=== PATIENT | female | born 1945 | race Caucasian/White ===

== ENCOUNTER 2024-08-16 15:08 | Emergency (ER) | payer MEDICARE, SELFPAY ==
[2024-08-16 15:15] VITALS: BP 166/95
[2024-08-16 15:16] VITALS: BP 166/95
[2024-08-16 15:32] LABS: % Basophils 1.1 % (0-2); % Eosinophils 0.6 % (0-6); % Immature Granulocytes 0.3 % (0-0.5); % Lymphocytes 22.6 % (20.5-51.1); % Monocytes 9.6 % (1.7-9.3); % Neutrophils 65.8 % (42.2-75.2); Absolute Basophils 0.1 10^3/uL (0-0.2); Absolute Eosinophils 0.1 10^3/uL (0-0.7); Absolute Lymphocytes 2.2 10^3/uL (1.2-3.4); Absolute Monocytes 0.9 10^3/uL (0.1-0.6); Absolute Neutrophils 6.4 10^3/uL (1.4-6.5); Hematocrit 39.6 % (37.0-47.0); Hemoglobin 14.1 g/dL (12.0-16.0); Mean Corp Hgb Conc. 35.6 g/dL (33.0-37.0); Mean Corpuscular Hgb 32.4 pg (27.0-31.0); Mean Platelet Volume 10.2 fL (7.4-10.4); Nucleated Red Blood Cells % 0 %; Platelet Count 272 10^3/uL (130-400); Red Blood Cell Count 4.35 10^6/uL (4.20-5.40); Red Cell Dist. Width 11.9 % (11.5-14.5); White Blood Cell Count 9.8 10^3/uL (4.8-10.8)
[2024-08-16 15:53] LABS: ALT (SGPT) 16 U/L (0-35); AST (SGOT) 27 U/L (14-36); Albumin 4.6 g/dl (3.5-5.0); Alkaline Phosphatase 76 U/L (38-126); Blood Urea Nitrogen 17 mg/dl (7-17); Calcium 9.4 mg/dl (8.4-10.2); Carbon Dioxide 24 mmol/L (22-30); Chloride 105 mmol/L (98-107); Estimated Creatinine Clearance 66 ml/min; Glucose 117 mg/dl (70-99); Potassium 4.7 mmol/L (3.5-5.1); Sodium 138 mmol/L (135-145); Total Bilirubin 0.9 mg/dl (0.2-1.3); Total Protein 7.6 g/dl (6.3-8.2); eGFR > 60.00
[2024-08-16] MEDS: CARDIZEM 20 MG IV (16:24)
[2024-08-16] MEDS: CARDIZEM 125 IV (16:24)
[2024-08-16 16:28] VITALS: BP 124/58
[2024-08-16 16:45] VITALS: BP 130/60
[2024-08-16 16:45] LABS: APTT 30.6 Sec (23.4-35.0)
[2024-08-16 16:47] LABS: D-Dimer 0.38 ug/mlFEU (0.00-0.50)
[2024-08-16 16:53] LABS: Troponin I < 0.012 ng/ml
[2024-08-16 17:11] LABS: NT-proBNP 668 pg/ml
[2024-08-16 17:24] LABS: Magnesium 1.9 mg/dl (1.6-2.3)
--- NOTE | 2024-08-16 17:50 | ED.GENMED ---
History of Present Illness
General
Chief Complaint: Heart Rate Problem
Source: patient
Exam Limitations: none
Time Seen by Provider: 08/16/24 15:29
Nursing documentation reviewed up to this point in time: agreed with
History of Present Illness
History of Present Illness:
Patient presents to ED secondary to intermittent episodes of chest palpitations with dizziness, which has caused her to fall on multiple occasions, including today. Patient unsure if she briefly passed during this event. Denies preceding chest
pain or shortness of breath. Denies nausea or vomiting. Denies diaphoresis. Patient has been evaluated by her primary care physician for similar complaint and has also had an outpatient evaluation with cardiology and neurologist, without
identification of etiology behind her symptoms. Denies recent illness. Denies loss of appetite. Typically, patient states that she does not sleep well at night.
Review of Systems
Review of Systems
Allergies reviewed?: Yes
All Other Systems: ROS reviewed and negative except as documented in HPI and ROS
Constitutional: Reports no symptoms
EENT: Reports no symptoms
Respiratory: Reports no symptoms; Denies trouble breathing
Cardiac: Reports palpitations and syncope; Denies chest pain
ABD/GI: Reports no symptoms; Denies nausea or vomiting
Musculoskeletal: Reports no symptoms
Skin: Reports no symptoms
Neurological: Reports dizzy; Denies headache or weakness
Phy Exam
Physical Exam
Physical Exam:
Physical Exam
General: no apparent distress, not acutely ill. afebrile
Head: nc/at. eomi
Neck: supple. normal range of motion.
Heart: irregularly irregular, tachycardic, no murmur.
Lungs: no acute respiratory distress. clear bilaterally
Abdomen: normal bowel sounds. not tender.
Neuro: alert and oriented x 3. no focal neurological deficits
Skin: no rash
Psychiatric: well kept. interactive and cooperative
Extremities: b/l non-pitting LE edema. no calf tenderness.
Course
Orders/Labs/Results
Orders:
Orders
08/16/24 15:23
Electrocardiogram (*1) Urgent
Reason for Study: Abdominal Pain
EKG- Treatment ONCE
08/16/24 15:24
Complete Blood Count/With Diff Urgent
Comprehensive Metabolic Panel Urgent
Magnesium Urgent
08/16/24 15:42
Free T4 Urgent
TSH Reflex To Free T4 Urgent
Comment: MAG & TSH REFLEX ADDED ON BY FLOOR 4:15PM 08-16-24
08/16/24 16:14
Add On- LAB Urgent
Tests Added?: magnesium, TSH to reflex free T4, ProBNP
08/16/24 16:15
Diltiazem 125 mg/125 ml Nss [Cardizem] 125 mg in 125 ml IV PER PROTOCOL
Initial dose in mg/hr, then titrate:: 5
Titrate to keep:: Heart rate 80-100 bpm
Titrate by mg/hr:: 5 mg/hr
Frequency of titrations (minutes):: 15
Maximum dose in mg/hr:: 15
Diltiazem HCl [Cardizem] 20 mg IV NOW STA
08/16/24 16:16
Heparin 7,400 units IV NOW STA
Pharmacy Request to Place See Dose Instructions PO NOW STA
Discontinue all Active Warfarin orders?: Yes
08/16/24 16:21
D-Dimer Urgent
NT-proBNP Urgent
Comment: PROBNP ADDED ON BY FLOOR 4:15PM 08-16-24
PTT Urgent
Comment: Obtain baseline before beginning heparin infusion if not already collected
Troponin I Urgent
08/16/24 16:30
Heparin 42304 Units/250 ml 25,000 units in 250 ml IV PER PROTOCOL
Weight to be used for heparin protocol in kilograms (kg):: 92.4
Protocol:: DVT/PE
PTT Goal Range to be used:: PTT 73 to 111 seconds
Order type:: Initial
INITIAL Infusion Dose (UNITS/KG/hr) & then follow protocol:: 18 units/kg/hr
Infusion Dose in UNITS/hr & then follow protocol (UNITS/hr):: 1,700
INFUSION RATE in mL/hr & then follow protocol (mL/hr):: 17
For DVT/PE algorithm, re-bolus for low PTT?: Yes
PTT less than or equal to 64 seconds:: Re-bolus 80 units/kg (max 10,000units). Increase by 400 units/hr
(+ 4mL/hr)
PTT 64.1 to 72.9 seconds:: Re-bolus 40 units/kg (max 5,000 units). Increase by 200 units/hr
(+ 2mL/hr)
PTT 73 to 111 seconds:: Target Range. No change in rate.
PTT 111.1 to 130.9 seconds:: Decrease rate by 200 units/hr (- 2 mL/hr)
PTT 131 to 199.9 seconds:: HOLD for 1 hr. Then decrease by 300 units/hr (- 3mL/hr)
PTT greater than or equal to 200 seconds:: HOLD for 2 hrs & Notify Provider. Then decrease by 400 units/hr
(- 4mL/hr)
Lab follow-up:: Each change, PTT q6h until 2 consecutive are therapeutic. Then
PTT daily.
08/16/24 16:56
Electrocardiogram (*1) Urgent
Reason for Study: Chest Pain
EKG- Treatment ONCE
08/16/24 17:[address] See Dose Instructions IV DIRECTED
08/16/24 17:43
Apixaban [Eliquis] 5 mg PO NOW STA
Diltiazem Extended Release [Cardizem Cd] 120 mg PO NOW STA
Abnormal Lab Results
08/16/24 08/16/24
15:24 15:42
MCH 32.4 H pg
(27.0-31.0)
Absolute Monos (auto) 0.9 H 10^3/uL
(0.1-0.6)
Monocytes % 9.6 H %
(1.7-9.3)
Glucose 117 H mg/dl
(70-99)
TSH (Reflex) 0.04 L uIU/ml
(0.47-4.68)
08/16/24 15:24
08/16/24 15:24
Vital Signs
Initial and Last Documented VS:
Initial Vital Signs
Temp Pulse Resp BP Pulse Ox
98.2 F 151 20 166/95 98
08/16/24 15:15 08/16/24 15:15 08/16/24 15:15 08/16/24 15:15 08/16/24 15:15
Last Documented Vital Signs
Temp Pulse Resp BP Pulse Ox
98.2 F 100 12 141/80 99
08/16/24 15:15 08/16/24 19:01 08/16/24 19:01 08/16/24 19:01 08/16/24 18:00
MDM/Problems Addressed
MDM/Problems Addressed:
History and exam consistent with likely new onset atrial fibrillation with symptoms. During Cardizem infusion, patient noted to convert spontaneously to normal sinus rhythm, confirmed by repeat EKG. Patient remains asymptomatic, and
hemodynamically stable. After discussion with patient and spouse, decision made to discharge patient home with new medications, i.e. Cardizem and Eliquis, along with cardiology follow-up as an outpatient.
*Critical Care Note
Total Time (30-74mins, 75-104mins- exclusive of procedures): Not Applicable
ED Attending Note
-
Portions of this chart may have been created with voice recognition software.� Occasional wrong word or��sound alike� substitutions may have occurred due to the inherent limitations of voice recognition software.
Discharge Plan
Departure
Patient Disposition: Home (Routine Discharge)
Date of Disposition: 08/16/24
Time of Disposition: 18:56
Patient with high blood pressure during this ER visit?: Yes
Condition: Good
Discharge Problem:
Atrial fibrillation
Instructions: Atrial Fibrillation (DC)
Prescriptions:
New
diltiazem HCl [Cardizem CD] 120 mg capsule,extended release 24hr
120 mg PO DAILY Qty: 30 0RF
Eliquis 5 mg tablet
5 mg PO BID Qty: 60 0RF
No Action
aspirin 81 mg Tablet,Delayed Release (Dr/Ec)
81 mg PO DAILY
Premarin 0.625 mg Tablet
0.625 mg PO DAILY
Referrals:
Cayden Serrano MD [Active] -
NONE,* [Family Provider] -
Activity Restrictions/Additional Instructions:
As discussed, please follow-up with referred section leader for further evaluation and treatment. Your prescriptions have been sent electronically to [facility] pharmacy in [place].
Interventions
Interventions:
*Risk Screen - Suicide Last Done: 08/16/24 15:15
*General Assessment Last Done: 08/16/24 15:15
*Neglect/Abuse Screening Last Done: 08/16/24 15:15
*ED- Fall Risk Assessment Last Done: 08/16/24 19:07
*ED COVID-19 Vaccine History Last Done: 08/16/24 16:00
*Nursing Disposition Last Done: 08/16/24 19:07
ED- Cardiac Assessment Last Done: 08/16/24 16:00
ED- Pulmonary Assessment Last Done: 08/16/24 16:00
Discharge Date and Time
Discharge Date/Time: 08/16/24 19:09
Print Language: CITIZEN OF [place]
[2024-08-16 17:55] LABS: TSH Reflex To Free T4 0.04 uIU/ml (0.47-4.68)
[2024-08-16] MEDS: CARDIZEM CD 120 MG PO (18:04)
[2024-08-16] MEDS: ELIQUIS 5 MG PO (18:04)
[2024-08-16 18:24] LABS: Free T4 0.82 ng/dl (0.78-2.19)
[2024-08-16 19:01] VITALS: BP 141/80
== END 2024-08-16 19:09 | disposition home or self-care (01) ==
LOC: EMR 15:08
PROVIDERS: EMERGENCY PHYSICIAN Emergency Medicine
DX: I48.91 Unspecified atrial fibrillation (principal); R55 Syncope and collapse
CPT/HCPCS: 96374; 99284; 80053; 83735; 83880; 84439; 84443; 84484; 85025; 85379; 85730; 93005

== ENCOUNTER → 2024-10-28 11:01 | Outpatient (REF) | payer MEDICARE, SELFPAY | LOC: RCS 11:01 | PROVIDERS: ATTENDING PHYSICIAN Internal Medicine Cardiovascular Disease; FAMILY PHYSICIAN Internal Medicine | DX: I48.0 Paroxysmal atrial fibrillation (principal) | CPT/HCPCS: 93306 ==